=== PATIENT | female | born 1985 | race American Indian/Alaskan Native ===

== ENCOUNTER 2017-09-01 19:51 | Emergency (ER) | payer MEDICAID ==
--- NOTE | 2017-09-01 20:40 | Emergency Department Report ---
ED Anxiety HPI - General Chief Complaint: Anxiety Stated Complaint: SHAKING Time Seen by Provider: 09/01/17 20:39 Source: patient, EMS Mode of arrival: Ambulatory - History of Present Illness Initial Comments: Patient had significant anxiety reaction today onset about 1600 hrs., 3 hours prior to arrival, where patient developed a sensation of apprehension, tightness in chest, tremors, but no loss of consciousness. She's been having these frequently over the past month, up to several times per day, although not every day. She had previously not had any similar episodes. Past medical history is one of fairly good health, with only asthma as her predominant ongoing symptoms, and she does not have a routine physician. She was seen for similar episode along with an asthma attack 1 week ago, at [facility], with a negative evaluation, which she was reassured, and started on unknown medication that starts with hydro-, but which she did not tolerate, and stopped taking within a couple of days. She does not take any routine medications, denies any recreational drug use, has no allergies, has not had any trauma or falls recently, and no systemic symptoms. Symptoms have essentially subsided since she has arrived here, and began subsiding after about 15-30 minutes, although symptoms have lasted for a couple of hours, and the best relief that she gets is when she takes a tub bath. She has minor secondary symptoms of some chest tightness when she has the episodes, but no diaphoresis, no difficulty breathing, no radiation of discomfort. Only other immediate complaint is soreness in the left leg, which came after she had the jerking episode, and she also reports that she has osteoarthritis, and is supposed to take Naprosyn, but reports that it does not help him up and she also has GERD, which tends to act up when she takes it. Complaint: anxiety - Related Data Home Medications: Previous Rx's Medication Instructions Recorded Last Taken Type Amoxicillin [Trimox CAP] 500 mg PO Q8H #21 capsule 03/12/13 Unknown Rx Ibuprofen [Motrin] 800 mg PO TID PRN #15 tablet 03/12/13 Unknown Rx Sulfamethoxazole/Trimethoprim 1 each PO BID #14 tablet 03/12/13 Unknown Rx [Bactrim DS] Acetaminophen/Codeine [Tylenol 1 - 2 tab PO Q4HR PRN #12 tablet 09/01/17 Unknown Rx /Codeine # 3 tab] Meclizine [Antivert] 25 mg PO TID PRN #21 tablet 09/01/17 Unknown Rx Allergies/Adverse Reactions: Allergies Allergy/AdvReac Type Severity Reaction Status Date / Time No Known Allergies Allergy Verified 03/12/13 15:43 ED Review of Systems ROS: Stated complaint: SHAKING Other details as noted in HPI Comment: All other systems reviewed and negative Constitutional: denies: chills, diaphoresis, fever, malaise, weakness Eyes: denies: eye pain ENT: denies: throat pain, epistaxis Respiratory: denies: cough, orthopnea, shortness of breath Cardiovascular: chest pain. denies: palpitations, edema (mild central tightness , lasting duration of anxiety), syncope Endocrine: no symptoms reported Gastrointestinal: denies: abdominal pain, nausea, diarrhea Genitourinary: denies: urgency, dysuria, discharge Musculoskeletal: arthralgia (left knee), other (tremors, with muscle jerkings, but no clonic tonic convulsive activity). denies: myalgia Neurological: as per HPI, headache (mild headache, generalized,), other (no seizure activity, but tremor during height of anxiety reaction) Psychiatric: denies: anxiety, depression, auditory hallucinations, visual hallucinations Hematological/Lymphatic: denies: easy bleeding, easy bruising ED Past Medical Hx - Past Medical History Previous Medical History?: Yes Hx Hypertension: Yes Hx Heart Attack/AMI: No (history of heart murmur, asymptomatic) Hx Congestive Heart Failure: No Hx GERD: Yes Hx Seizures: No Hx Asthma: Yes Additional medical history: heart murmur, asthma. osteommyolitis - Surgical History Past Surgical History?: Yes Additional Surgical History: hernia repair - Social History Smoking Status: Never Smoker Substance Use Type: None - Medications Home Medications: Home Medications Medication Instructions Recorded Confirmed Last Taken Type Amoxicillin [Trimox CAP] 500 mg PO Q8H #21 capsule 03/12/13 Unknown Rx Ibuprofen [Motrin] 800 mg PO TID PRN #15 tablet 03/12/13 Unknown Rx Sulfamethoxazole/Trimethoprim 1 each PO BID #14 tablet 03/12/13 Unknown Rx [Bactrim DS] Acetaminophen/Codeine [Tylenol 1 - 2 tab PO Q4HR PRN #12 tablet 09/01/17 Unknown Rx /Codeine # 3 tab] Meclizine [Antivert] 25 mg PO TID PRN #21 tablet 09/01/17 Unknown Rx ED Physical Exam - General Limitations: No Limitations General appearance: alert, in no apparent distress, other (mildly withdrawn, not overtly anxious, but generally appropriate otherwise normal mood, cooperative) - Head Head exam: Present: atraumatic, other (mild scalp tenderness, generally, nonspecific, no bony tenderness) - Eye Eye exam: Present: PERRL, EOMI - ENT ENT exam: Present: normal exam, mucous membranes moist - Neck Neck exam: Present: normal inspection, full ROM. Absent: tenderness - Respiratory Respiratory exam: Present: normal lung sounds bilaterally. Absent: respiratory distress, wheezes, rales, rhonchi - Cardiovascular Cardiovascular Exam: Present: regular rate, normal heart sounds. Absent: systolic murmur - GI/Abdominal GI/Abdominal exam: Present: soft, normal bowel sounds, other (obese). Absent: distended, tenderness - Rectal Rectal exam: Present: deferred - Extremities Exam Extremities exam: Present: normal inspection (obese, no overt effusion over left knee), full ROM (mild discomfort to knee, no crepitus), tenderness (around left knee, right knee is normal). Absent: pedal edema (obese, but no arielle pitting edema), joint swelling, calf tenderness - Back Exam Back exam: Present: normal inspection - Neurological Exam Neurological exam: Present: alert, oriented X3, CN II-XII intact. Absent: motor sensory deficit - Psychiatric Psychiatric exam: Present: normal affect, normal mood, flat affect (slightly flattened affect, but generally appropriate) - Skin Skin exam: Present: warm, dry ED Course Vital Signs 09/01/17 09/01/17 09/01/17 20:02 20:16 20:30 Temperature 37.4 C Pulse Rate 87 76 Respiratory 20 17 Rate Blood Pressure 112/77 118/79 O2 Sat by Pulse 100 100 100 Oximetry 09/01/17 09/01/17 21:00 21:26 Temperature Pulse Rate 74 Respiratory 20 16 Rate Blood Pressure 109/74 O2 Sat by Pulse 100 99 Oximetry ED Medical Decision Making - Medical Decision Making Patient has recurrent symptoms typical for anxiety reaction worsening over the past month, but denies acute situational stress, either familial, relationship, monetary, or job-related. Nonetheless, she has few other risk factors for other intercurrent disease, takes no routine medications other than intermittent asthma treatments, I believe she is stable for home treatment with mild anxiolytics, meclizine, and I will also give her a short course of Tylenol with Codeine for headache, which may be secondary either to chronic tension, or her recent episode of jitteriness today, which seems to have irritated her left knee, and may have also caused tension type headache. I'll also recommend patient obtain primary care physician, have routine follow- ups, particularly if she gets no relief from ongoing meclizine treatment. - Differential Diagnosis anxiety reaction, situational stress, tremor, seizure disorder Critical Care Time: No Critical care attestation.: If time is entered above; I have spent that time in minutes in the direct care of this critically ill patient, excluding procedure time. ED Disposition Clinical Impression: Anxiety reaction Disposition: DC-01 TO HOME OR SELFCARE Is pt being admited?: No Does the pt Need Aspirin: No Condition: Stable Instructions: Anxiety (ED) Additional Instructions: Examination today is stable, there is no clear source for your anxiety, but the remainder of her physical examination is stable, with the exception of a mild tension type muscular headache, as well as soreness in the knee, which we believe was from the tremor episode earlier in the afternoon. We are treating headache with Tylenol with codeine, which he may take every 4-6 hours for the next day or so, this will also help soreness in the knee. He can also continue taking Naprosyn as previously prescribed for the knee discomfort and for mild headache also. We are prescribing meclizine for anxiety, and you may take 1 tablet up to 3 times per day, if you're having any symptoms, but you do not have to take any medications if you're not having any symptoms. We recommend obtaining a primary care doctor, either through [place] or at [facility] because if you don't get significant relief from these medications do need to have a regular doctor who can help him manage her anxiety. We do not believe that you're having any form of seizure today, but the tremors should be followed, and a specialist may need to examine you, and may want to perform an EEG, but this can be arranged through a primary care doctor Recheck in the emergency department if you have any significant worsening or worrisome new symptoms. Prescriptions: Acetaminophen/Codeine [Tylenol /Codeine # 3 tab] 1 - 2 tab PO Q4HR PRN #12 tablet PRN Reason: Pain Meclizine [Antivert] 25 mg PO TID PRN #21 tablet PRN Reason: Anxiety Referrals: PRIMARY CARE, [Primary Care Provider] - 3-5 Days Time of Disposition: 21:52
[2017-09-01] MEDS ORDERED: TYLENOL #3 PO ONE (21:38)
[2017-09-01] MEDS ORDERED: ANTIVERT PO ONE (21:38)
[2017-09-01 22:07] VITALS: BP 126/77
== END 2017-09-01 22:08 | disposition home or self-care (01) ==
LOC: ED 19:51
DX: F41.9 Anxiety disorder, unspecified (principal); I10 Essential (primary) hypertension; K21.9 Gastro-esophageal reflux disease without esophagitis
CPT/HCPCS: 99284

== ENCOUNTER 2017-10-15 09:28 | Emergency (ER) | payer SELFPAY ==
[2017-10-15 09:36] VITALS: BP 138/96
--- NOTE | 2017-10-15 11:03 | Emergency Department Report ---
ED General Adult HPI - General Chief complaint: Anxiety Stated complaint: ANXIETY Time Seen by Provider: 10/15/17 10:52 Source: patient Mode of arrival: Ambulatory Limitations: No Limitations - History of Present Illness Initial comments: Patient is a 32-year-old Female who is presenting with frequent panic attacks. Patient was prescribed Antivert for dizziness and anxiety type symptoms last month and has run out of medication. Patient states that medication is helping with her symptoms. Patient does have follow-up appointment but is not for another week. Patient states she gets very nervous with palpitations shortness of breath at. Patient denies any chest pain nausea vomiting diarrhea or abdominal pain at this time. - Related Data Previous Rx's Medication Instructions Recorded Last Taken Type Amoxicillin [Trimox CAP] 500 mg PO Q8H #21 capsule 03/12/13 Unknown Rx Ibuprofen [Motrin] 800 mg PO TID PRN #15 tablet 03/12/13 Unknown Rx Sulfamethoxazole/Trimethoprim 1 each PO BID #14 tablet 03/12/13 Unknown Rx [Bactrim DS] Acetaminophen/Codeine [Tylenol 1 - 2 tab PO Q4HR PRN #12 tablet 09/01/17 Unknown Rx /Codeine # 3 tab] Meclizine [Antivert] 25 mg PO TID PRN #21 tablet 10/15/17 Unknown Rx Allergies Allergy/AdvReac Type Severity Reaction Status Date / Time No Known Allergies Allergy Verified 10/15/17 09:34 ED Review of Systems ROS: Stated complaint: ANXIETY Other details as noted in HPI Comment: All other systems reviewed and negative ED Past Medical Hx - Past Medical History Hx Hypertension: Yes Hx Heart Attack/AMI: No (history of heart murmur, asymptomatic) Hx Congestive Heart Failure: No Hx GERD: Yes Hx Seizures: No Hx Asthma: Yes Additional medical history: heart murmur, asthma. osteommyolitis - Surgical History Additional Surgical History: hernia repair - Social History Smoking Status: Never Smoker Substance Use Type: None - Medications Home Medications: Home Medications Medication Instructions Recorded Confirmed Last Taken Type Amoxicillin [Trimox CAP] 500 mg PO Q8H #21 capsule 03/12/13 Unknown Rx Ibuprofen [Motrin] 800 mg PO TID PRN #15 tablet 03/12/13 Unknown Rx Sulfamethoxazole/Trimethoprim 1 each PO BID #14 tablet 03/12/13 Unknown Rx [Bactrim DS] Acetaminophen/Codeine [Tylenol 1 - 2 tab PO Q4HR PRN #12 tablet 09/01/17 Unknown Rx /Codeine # 3 tab] Meclizine [Antivert] 25 mg PO TID PRN #21 tablet 10/15/17 Unknown Rx ED Physical Exam - General Limitations: No Limitations General appearance: alert, in no apparent distress - Head Head exam: Present: atraumatic, normocephalic - Eye Eye exam: Present: normal appearance - ENT ENT exam: Present: mucous membranes moist - Neck Neck exam: Present: normal inspection - Respiratory Respiratory exam: Present: normal lung sounds bilaterally. Absent: respiratory distress - Cardiovascular Cardiovascular Exam: Present: regular rate, normal rhythm. Absent: systolic murmur, diastolic murmur, rubs, gallop - GI/Abdominal GI/Abdominal exam: Present: soft, normal bowel sounds - Extremities Exam Extremities exam: Present: normal inspection - Back Exam Back exam: Present: normal inspection - Neurological Exam Neurological exam: Present: alert, oriented X3 - Psychiatric Psychiatric exam: Present: normal affect, normal mood - Skin Skin exam: Present: warm, dry, intact, normal color. Absent: rash ED Course Vital Signs 10/15/17 09:34 Temperature 98.5 F Pulse Rate 83 Respiratory 20 Rate Blood Pressure 138/96 O2 Sat by Pulse 100 Oximetry ED Medical Decision Making - Medical Decision Making Patient is a nominal [facility] but does have Medicaid. Patient will be given another prescription for Antivert and will be discharged home follow-up with the appointment that she has scheduled. Critical care attestation.: If time is entered above; I have spent that time in minutes in the direct care of this critically ill patient, excluding procedure time. ED Disposition Clinical Impression: Anxiety Disposition: DC-01 TO HOME OR SELFCARE Is pt being admited?: No Does the pt Need Aspirin: No Condition: Stable Instructions: Anxiety (ED) Prescriptions: Meclizine [Antivert] 25 mg PO TID PRN #21 tablet PRN Reason: Anxiety Referrals: PRIMARY CARE, [Primary Care Provider] - 3-5 Days Time of Disposition: 11:03
== END 2017-10-15 11:10 | disposition home or self-care (01) ==
LOC: ED 09:28
DX: F41.9 Anxiety disorder, unspecified (principal); R06.02 Shortness of breath; R00.2 Palpitations; I10 Essential (primary) hypertension; K21.9 Gastro-esophageal reflux disease without esophagitis; J45.909 Unspecified asthma, uncomplicated; Z79.899 Other long term (current) drug therapy
CPT/HCPCS: 99282